=== PATIENT | male | born 1965 | race Caucasian/White ===

== ENCOUNTER 2016-03-03 20:51 | Emergency (ER) | payer BC ==
[~2016-03-03 20:51] MED LIST: Iopamidol 370 76% 100 ML VIAL ONE
[2016-03-03] MEDS ORDERED: Ketorolac Tromethamine 30 MG/ML VIAL ONE (21:34)
[2016-03-03 21:37] LABS: #Basophils 0.1 thou/uL (0.0-0.2); #Eosinphils 0.3 thou/uL (0.0-0.7); #Lymphocytes 2.9 thou/uL (1.20-3.40); #Monocytes 0.9 thou/uL (0.11-0.59); #Neutrophils 11.9 thou/uL (1.40-6.50); %Basophils 0.7 % (0.0-1.0); %Eosinophils 1.9 % (0.0-10.0); %Monocytes 5.8 % (0.0-10.0); Hematocrit 46.2 % (42.0-52.0); Mean Platelet Volume 7.3 fL (7.4-10.4); Red Blood Cell (RBC) Count 5.03 mill/uL (4.70-6.10); White Blood Cell (WBC) Count 16.1 thou/uL (4.8-10.8)
[2016-03-03 21:44] LABS: Lactic Acid - Sepsis 1.4 mmol/L (0.5-2.2)
[2016-03-03 21:46] LABS: ALT (SGPT) 30 U/L (0-55); AST (SGOT) 17 U/L (5-34); Alkaline Phosphatase 66 U/L (40-150); Anion Gap 15 mmol/L (10-20); BUN (Urea Nitrogen) 13 mg/dL (8.4-25.7); Bilirubin, Total 0.2 mg/dL (0.2-1.2); Calc. Creatinine Clearance 0 mL/min (70-130); Calcium 9.2 mg/dL (7.8-10.44); Carbon Dioxide 24 mmol/L (22-29); Chloride 111 mmol/L (98-107); Estimated GFR-MDRD Greater than 90; Globulin 3.1 g/dL (2.4-3.5); Lipase 16 U/L (8-78); Protein, Total 7.4 g/dL (6.0-8.3)
[2016-03-03] MEDS ORDERED: Piperacillin/Tazobactam 3.375 GM VIAL ONE (22:39)
--- NOTE | 2016-03-03 23:41 | ERRECORD ---
[facility] EMERGENCY RECORD HPI ABDOMINAL PAIN (21:10 [facility]) CHIEF COMPLAINT: Patient presents for evaluation of abdominal pain, Patient presents for evaluation of abdominal distention. HISTORIAN: History provided by patient, History provided by patient's partner, 50M presents to the ED complaining of two hours of periumbilical abdominal pain. States that he was having a problem with diarrhea and an outside provider started him on what he thinks is an anti-diarrheal medication. He stopped having diarrhea, and has had difficulty making a bowel movement since Friday. Has not had any nausea or vomiting. Has been passing gas, but not today, and has had only small amounts of fluid passed rectally. LOCATION MALE: Symptoms are generalized. QUALITY: Pain is dull in nature. TIME COURSE: Sudden onset of symptoms, Symptoms are constant. ASSOCIATED WITH: Associated with constipation, Associated with diarrhea. RELIEVED BY: Patient's condition relieved by nothing. EXACERBATED BY: Patient's condition exacerbated by nothing. ROS (21:12 [facility]) CONSTITUTIONAL: Negative constitutional review of systems, Historian denies chills, denies fever. EYES: Negative eye review of systems, Historian denies eye pain, denies eye discharge, denies vision changes. ENT: Negative ears, nose, throat review of systems, Historian denies rhinorrhea, denies sore throat. CARDIOVASCULAR: Negative cardiovascular review of systems, Historian denies chest pain, denies palpitations. RESPIRATORY: Negative respiratory review of systems, Historian denies cough, denies shortness of breath. GI: Historian reports abdominal pain, reports constipation, reports diarrhea. GENITOURINARY MALE: Negative genitourinary review of systems, Historian denies dysuria, denies hematuria. MUSCULOSKELETAL: Negative musculoskeletal review of systems, Historian denies back pain, denies fall, denies injury, denies neck pain. SKIN: Negative skin review of systems, Historian denies rash, denies skin changes. NEUROLOGIC: Negative neurologic review of systems, Historian denies headache. HEMO/LYMPHATIC: Normal hematologic/lymphatic system review, Historian denies abnormal blood clotting. PAST MEDICAL HISTORY (21:05 [facility]) MEDICAL HISTORY: No past medical history. 03/03/16 RECENTLY DX WITH HYPERTENSION AND STARTED ON MEDS. H/O GERDS AND IS ON AMOXICILLIN FOR A POSSIBLE TOOTH INFECTION. MALE SURGICAL HISTORY: Surgical history of hernia repair. &a-1R&a+25V*p+0X*[id number]*c202B*c15G*c2P*p-0X&a-25V&a+1R Name: Rodriguez Nolasco : 1965 M50 MedRec: [id number] AcctNum: [id number] Prepared: FriMar 04, 2016 00:13 by Interface Page 1 of 4 pMD [facility] EMERGENCY RECORD REVIEWED 03/03/16. PSYCHIATRIC HISTORY: Psychiatric history includes, depression. REVIEWED 03/03/16. SOCIAL HISTORY: Patient drinks socially, every week, Patient denies drug use, Patient currently uses tobacco, smokes cigarettes, daily, Patient smokes 1 pack per day. 03/03/16 PER PATIENT, DENIES ANY SMOKING. QUIT 3 MONTHS WOKING. KNOWN ALLERGIES No Known Drug Allergies CURRENT MEDICATIONS No recorded medications VITAL SIGNS VITAL SIGNS: BP: 196/90, Pulse: 84, Resp: 20, Temp: 97.9 (Oral), Pain: 10, O2 sat: 97 on Room Air, Time: 03/03/2016 21:13. (21:13 [facility]) BP: 158/76, Pulse: 88, Resp: 20, Temp: 98.0 (Oral), Pain: 8, O2 sat: 98 on Room Air, Time: 03/03/2016 22:30. (22:30 [facility]) PHYSICAL EXAM (21:12 [facility]) CONSTITUTIONAL: Vital signs reviewed, Patient afebrile, Pulse normal, Blood pressure normal, Respiratory rate normal, Patient appears non toxic, Patient appears pain free, Patient alert and oriented to person, place and time. HEAD: Head exam normal, Head exam included findings of head atraumatic, normocephalic. EYES: Eye exam normal, Eye exam included findings of eyelids normal to inspection, Pupils equally round and reactive to light, Extraocular muscles intact, no nystagmus. ENT: ENT exam normal, Ear exam normal, external ear normal, tympanic membranes normal, no bleeding, Pharynx exam normal, Uvula exam normal, Tonsil exam normal, Mouth exam normal, mucous membranes moist, teeth normal. NECK: Neck exam normal, Neck exam included findings of normal range of motion, Trachea midline, no meningeal signs, no cervical adenopathy, no tenderness. RESPIRATORY CHEST: Respiratory and chest exam normal, Respiratory exam included findings of no respiratory distress, Breath sounds clear. CARDIOVASCULAR: Cardiovascular assessment normal, Cardiovascular exam included findings of heart rate regular rate and rhythm, Heart sounds normal. ABDOMEN MALE: Distension present, distended belly, patient reports generalized tenderness. BACK: Back exam normal, Back exam included findings of normal inspection, range of motion normal, no tenderness. UPPER EXTREMITY: Upper extremity exam normal, Upper extremity exam included findings of inspection normal, Range of motion normal, Motor strength normal, Sensation intact, Radial pulse normal. &a-1R&a+25V*p+0X*[id number]*c202B*c15G*c2P*p-0X&a-25V&a+1R Name: Rodriguez Nolasco : 1965 M50 MedRec: [id number] AcctNum: [id number] Prepared: FriMar 04, 2016 00:13 by Interface Page 2 of 4 pMD [facility] EMERGENCY RECORD LOWER EXTREMITY: Lower extremity exam normal, Lower extremity exam included findings of inspection normal, Range of motion normal, Motor strength normal, Sensation intact, Posterior tibial pulse normal, Pedal pulse normal. NEURO: Neuro exam normal, Neuro exam findings include patient oriented to person, place and time, Speech normal, Gait normal. SKIN: Skin exam normal, Skin exam included findings of skin warm, dry, and normal in color, no rash. PSYCHIATRIC: Psychiatric exam normal, Normal affect. RADIOLOGYINTERPRETATION (22:46 [facility]) ABDOMEN: Abdomen/pelvis CT scan, appendicitis. MEDICATION ADMINISTRATION SUMMARY Drug Name: Zosyn, Dose Ordered: 3.375 g, Route: IV Piggy Back, Status: Given, Time: 22:43 03/03/2016, Drug Name: morphine injection, Dose Ordered: 4 mg, Route: IV Push, Status: Given, Time: 22:40 03/03/2016, Drug Name: Toradol injection, Dose Ordered: 30 mg, Route: IV Push, Status: Given, Time: 21:36 03/03/2016, Detailed record available in Medication Service section. DOCTOR NOTES (22:46 [facility]) RE-EVALUATION: Routine re-evaluation, after administration of analgesics, The patient's condition has improved. TEXT: Patient presented with findings consistent with acute appendicitis. hemodynamically stable with improving symptoms following analgesics. Antibiotics delivered, appropriate for transfer to outside hospital with surgical capabilities. PATIENT STATUS: Patient has improved since arrival to emergency department. PATIENT PLAN: The patient requires a transfer and will be transferred, per physician request, due to availability of specialty care. DATA REVIEWED: Lab data reviewed, Xray data reviewed. PROBLEM LIST No recorded problems DIAGNOSIS (22:43 [facility]) FINAL: PRIMARY: Acute appendicitis (unspecified), ADDITIONAL: laceration left hand. PRESCRIPTION No recorded prescriptions DISPOSITION PATIENT: Disposition Type: Discharge, Disposition: *Discharge Home. (22:42 [facility]) &a-1R&a+25V*p+0X*[id number]*c202B*c15G*c2P*p-0X&a-25V&a+1R Name: Rodriguez Nolasco : 1965 1 MedRec: [id number] AcctNum: [id number] Prepared: FriMar 04, 2016 00:13 by Interface Page 3 of 4 pMD [facility] EMERGENCY RECORD Disposition Type: Transfer, Disposition: [facility]. (22:43 [facility]) Disposition: Transfer to [facility]. (22:46 [facility]) Patient left the department. (FriMar 04, 2016 00:11 [facility]) Mir: TETO=MD Lorin, Yasmani [facility]=NICO Monroe Leah MVIL=CHERYL Vick, Chery &a-1R&a+25V*p+0X*[id number]*c202B*c15G*c2P*p-0X&a-25V&a+1R Name: Rodriguez Nolasco : 1965 M50 MedRec: [id number] AcctNum: [id number] Prepared: FriMar 04, 2016 00:13 by Interface Page 4 of 4 pMD [facility]
--- NOTE | 2016-03-03 23:48 | PICIS ---
[facility] EMERGENCY RECORD TRIAGE (FriMar 03, 2016 21:01 MVIL) TRIAGE NOTES: C/O DIARRHEA X 2-3 WKS WITH ABD PAIN. DENIES ANY N/V OR FEVER. (FriMar 03, 2016 21:01 MVIL) PATIENT: NAME: Rodriguez Nolasco, AGE: 50, GENDER: male, : Fri1965, TIME OF GREET: FriMar 03, 2016 20:52, PREFERRED LANGUAGE: [place], ETHNICITY: Not or , ECODE BILLING MAP: [facility], SSN: [id number], Zip Code: [address], KG WEIGHT: 120.20, HEIGHT/LENGTH: 177.80cm, BMI: 38.02, PHONE: , , , PERSON ID: [id number], PAYMENT: X IDverge, PCP: NONE. (FriMar 03, 2016 21:01 MVIL) COMPLAINT: CONSTIPATION. (FriMar 03, 2016 21:01 MVIL) ADMISSION: URGENCY: 4 Non Urgent, ADMISSION SOURCE: Home, TRANSPORT: CAR, BED: ER -02. (FriMar 03, 2016 21:01 MVIL) ASSESSMENT: Assessment: C/O GENERALIZED ABD PAIN WITH B/L FLANK PAIN AND LOWER PELVIC PAIN WELL. PATIENT HAS, Symptoms began 03/03/2016 21:04, Symptoms began 1 hour ago. (21:05 MVIL) PAIN: Patient complains of pain described as, cramping, on a scale 0-10 patient rates pain as 10, Location GENERALIZED ABD PAIN, Pain is constant, No aggravating factors, No relieving factors. (21:05 MVIL) IMMUNIZATIONS: Flu vaccine not up to date, Tetanus immunization up to date, Pneumococcal vaccine not up to date. (21:05 MVIL) PROVIDERS: TRIAGE NURSE: Chery Vick RN. (FriMar 03, 2016 21:01 MVIL) PREVIOUS VISIT ALLERGIES: No Known Drug Allergies. (FriMar 03, 2016 21:01 MVIL) No Known Drug Allergies. (21:05 MVIL) KNOWN ALLERGIES No Known Drug Allergies CURRENT MEDICATIONS No recorded medications VITAL SIGNS VITAL SIGNS: BP: 196/90, Pulse: 84, Resp: 20, Temp: 97.9 (Oral), Pain: 10, O2 sat: 97 on Room Air, Time: 03/03/2016 21:13. (21:13 LSMI) BP: 158/76, Pulse: 88, Resp: 20, Temp: 98.0 (Oral), Pain: 8, O2 sat: 98 on Room Air, Time: 03/03/2016 22:30. (22:30 LSMI) NURSING ASSESSMENT: ABDOMEN (21:53 MVIL) CONSTITUTIONAL: Patient arrives ambulatory, Gait steady, History obtained from patient, Patient appears comfortable, Patient cooperative, Patient alert, Oriented to person, place and time, Skin warm, Skin dry, Skin normal in color, Mucous membranes pink, Mucous membranes moist, Patient, with poor personal hygiene, Patient complains of C/O GENERALIZED ABD PAIN WITH 2-3 &a-1R&a+25V*p+0X*l6096U*c202B*c15G*c2P*p-0X&a-25V&a+1R Name: Rodriguez Nolasco Irlanda : 1965 M50 MedRec: [id number] AcctNum: [id number] Prepared: FriMar 04, 2016 00:19 by Interface Page 1 of 9 pMD [facility] EMERGENC[facility] RECORD DIARRHEA, PAIN LEVEL 9/10. TORADOL IV GIVEN PER MD ORDERS. PAIN: cramping pain, diffusely, constant, on a scale 0-10 patient rates pain as 9, Pain exacerbated by nothing, Nothing has been tried to alleviate the pain. ABDOMEN: Abdomen assessment findings include abdomen symmetrical, Abdomen soft, Resonance with percussion, Bowel sound normal, Associated with nausea. SAFETY: Side rails up, Cart/Stretcher in lowest position, Family at bedside, Call light within reach, Hospital ID band on. NURSING PROCEDURE: DISCHARGE NOTE (22:53 MVIL) DISCHARGE: Patient discharged to work. NURSING PROCEDURE: IV (21:26 MVIL) PATIENT IDENITIFIER: Patient actively involved in identification process, Patient's identity verified by patient stating name, Patient's identity verified by hospital ID bracelet. IV SITE 1: IV therapy indicated for medication administration, IV established, to the right antecubital, using a 20 gauge catheter, in two attempts, Saline lock established, Flushed with normal saline (mls): 10mls, Labs drawn at time of placement, labeled in the presence of the patient and sent to lab. FOLLOW-UP SITE 1: After procedure, 2x3 ensure dressing applied, After procedure, no drainage at IV site, After procedure, no swelling at IV site, After procedure, no redness at IV site. SAFETY: Side rails up, Cart/Stretcher in lowest position, Family at bedside, Call light within reach, Hospital ID band on. NURSING PROCEDURE: TRANSFER (23:07 MVIL) TRANSFER: Reason for transfer need for specialized care, Diagnosis: ACUTE APPENDICITIS, Accepting institution: [facility], Accepting physician: DR. NELSON, Referring physician: DR. GASCA, Report called to receiving facility, [facility], Provided opportunity to answer questions, Bed assigned ER, Summary of Care printed, Copy of patient record prepared for receiving facility, Status of patient's valuables documented on chart, Medication reconciliation form prepared and sent to receiving facility, Patient consent for transfer signed, Patient given appropriate sedation for safe transport. BELONGINGS: Belongings and valuables with patient at time of discharge include:. NURSING PROCEDURE: TRANSPORT TO TESTS PATIENT IDENTIFIER: Patient actively involved in identification process, Patient's identity verified by patient stating name, Patient's identity verified by hospital ID bracelet. (21:50 MVIL) TRANSPORT TO TESTS: Transport indicated to facilitate diagnosis, Patient transported to CT scan, ambulatory, Accompanied by x-ray &a-1R&a+25V*p+0X*v6632Q*c202B*c15G*c2P*p-0X&a-25V&a+1R Name: Rodriguez Nolasco : 1965 M50 MedRec: [id number] AcctNum: [id number] Prepared: FriMar 04, 2016 00:19 by Interface Page 2 of 9 pMD [facility] EMERGENCY RECORD instrument and control technician. (21:50 MVIL) FOLLOW-UP: After procedure, patient returned to emergency department. (22:00 MVIL) ORDER DETAILS Order Name: CBC with Differential, Status: Active, Time: 21:05 03/03/2016, User: TETO, - Ordered for: MD Gasca Jason, - Entered by: MD Gasca Jason - Sun Mar 03, 2016 21:05, - Quantity: 1, Order Name: Comprehensive Metabolic Panel, Status: Active, Time: 21:05 03/03/2016, User: TETO, - Ordered for: MD Gasca Jason, - Entered by: MD Gasca Jason - Sun Mar 03, 2016 21:05, - Quantity: 1, Order Name: CT Abdomen Pelvis W Con, Status: Active, Time: 21:05 03/03/2016, User: TETO, - Ordered for: MD Gasca Jason, - Entered by: MD Gasca Jason - Sun Mar 03, 2016 21:05, - Quantity: 1, Order Name: Lactic Acid with repeat, Status: Active, Time: 21:05 03/03/2016, User: TETO, - Ordered for: MD Gasca Jason, - Entered by: MD Gasca Jason - Sun Mar 03, 2016 21:05, - Quantity: 1, Order Name: Lipase, Status: Active, Time: 21:05 03/03/2016, User: TETO, - Ordered for: MD Gasca Jason, - Entered by: MD Gasca Jason - Sun Mar 03, 2016 21:05, - Quantity: 1, Order Name: SALINE LOCK, Status: Done, Time: 21:26 03/03/2016, User: BRUCE, - Ordered for: MD Gasca Jason, - Entered by: MD Gasca Jason Kalani Mar 03, 2016 21:05, - Quantity: 1. MEDICATION ADMINISTRATION SUMMARY Drug Name: Zosyn, Dose Ordered: 3.375 g, Route: IV Piggy Back, Status: Given, Time: 22:43 03/03/2016, Drug Name: morphine injection, Dose Ordered: 4 mg, Route: IV Push, Status: Given, Time: 22:40 03/03/2016, Drug Name: Toradol injection, Dose Ordered: 30 mg, Route: IV Push, Status: Given, Time: 21:36 03/03/2016, Detailed record available in Medication Service section. MEDICATION SERVICE morphine injection: Order: morphine injection (morphine sulfate) - Dose: 4 mg : IV Push &a-1R&a+25V*p+0X*p4946N*c202B*c15G*c2P*p-0X&a-25V&a+1R Name: Rodriguez Nolasco : 1965 M50 MedRec: [id number] AcctNum: [id number] Prepared: FriMar 04, 2016 00:19 by Interface Page 3 of 9 pMD [facility] EMERGENC[facility] RECORD Ordered by: Yasmani Gasca MD Entered by: MD Kalani Perera Mar 03, 2016 22:35 , Acknowledged by: NICO Luis Mar 03, 2016 22:39 Documented as given by: NICO Luis Mar 03, 2016 22:40 Patient, Medication, Dose, Route and Time verified prior to administration. IV SITE #1 IVP, initial medication, Slowly, Catheter placement confirmed via flush prior to administration, IV site without signs or symptoms of infiltration during medication administration, No swelling during administration, No drainage during administration, IV flushed after administration, Correct patient, time, route, dose and medication confirmed prior to administration, Patient advised of actions and side-effects prior to administration, Allergies confirmed and medications reviewed prior to administration, Patient in position of comfort, Side rails up, Cart in lowest position, Family at bedside, Call light in reach. : Follow Up : Response assessment performed, No signs or symptoms of allergic reaction noted, Decreased pain, Site inspection shows, No swelling at administration site, No drainage at administration site, No bleeding at site, No bruising noted at site, _IV SITE #1:_. (23:16 MVIL) Toradol injection: Order: Toradol injection (ketorolac tromethamine) - Dose: 30 mg : IV Push Ordered by: Yasmani Gasca MD Entered by: MD Kalani Perera Mar 03, 2016 21:33 Documented as given by: Chery Vick RN [place] Mar 03, 2016 21:36 Patient, Medication, Dose, Route and Time verified prior to administration. Amount given: 30mg, IV SITE #1 IVP, initial medication, Catheter placement confirmed via flush prior to administration, IV site without signs or symptoms of infiltration during medication administration, No swelling during administration, No drainage during administration, IV flushed after administration, Correct patient, time, route, dose and medication confirmed prior to administration, Patient advised of actions and side-effects prior to administration, Allergies confirmed and medications reviewed prior to administration, Patient in position of comfort, Side rails up, Cart in lowest position, Family at bedside. : Follow Up : Response assessment performed, No signs or symptoms of allergic reaction noted, Decreased pain, _IV SITE #1:_, IV Line flushed after administration, Advised not to ambulate without assistance, Patient in position of comfort, Side rails up, Cart in lowest position, Family at bedside. (23:23 MVIL) Zosyn: Order: Zosyn (piperacillin sodium/tazobactam sodium) - Dose: 3.375 g : IV Piggy Back Ordered by: Yasmani Gasca MD Entered by: MD Kalani Perera Mar 03, 2016 22:34 , Acknowledged by: NICO Luis Mar 03, 2016 22:39 Documented as given by: NICO Luis Mar 03, 2016 22:43 &a-1R&a+25V*p+0X*c1044E*c202B*c15G*c2P*p-0X&a-25V&a+1R Name: Rodriguez Nolasco Irlanda : 1965 M50 MedRec: [id number] AcctNum: [id number] Prepared: FriMar 04, 2016 00:19 by Interface Page 4 of 9 pMD [facility] EMERGENCY RECORD Patient, Medication, Dose, Route and Time verified prior to administration. IV SITE #1 IVP, subsequent different medication, Catheter placement confirmed via flush prior to administration, IV site without signs or symptoms of infiltration during medication administration, No swelling during administration, No drainage during administration, IV flushed after administration, Correct patient, time, route, dose and medication confirmed prior to administration, Patient advised of actions and side-effects prior to administration, Allergies confirmed and medications reviewed prior to administration, Patient in position of comfort, Side rails up, Cart in lowest position, Family at bedside, Call light in reach. : Follow Up : Response assessment performed, No signs or symptoms of allergic reaction noted, Decreased symptoms, _IV SITE #1:_, Medication infusion discontinued, on [place] Mar 03, 2016 23:25, 45 minutes, ., IV Line flushed after administration. (23:24 MVIL) HPI [facility]10 [facility] CHIEF COMPLAINT: Patient presents for evaluation of abdominal pain, Patient presents for evaluation of abdominal distention. HISTORIAN: History provided by patient, History provided by patient's partner, 50M presents to the ED complaining of two hours of periumbilical abdominal pain. States that he was having a problem with diarrhea and an outside provider started him on what he thinks is an anti-diarrheal medication. He stopped having diarrhea, and has had difficulty making a bowel movement since Friday. Has not had any nausea or vomiting. Has been passing gas, but not today, and has had only small amounts of fluid passed rectally. LOCATION MALE: Symptoms are generalized. QUALITY: Pain is dull in nature. TIME COURSE: Sudden onset of symptoms, Symptoms are constant. ASSOCIATED WITH: Associated with constipation, Associated with diarrhea. RELIEVED BY: Patient's condition relieved by nothing. EXACERBATED BY: Patient's condition exacerbated by nothing. ROS (21:12 [facility]) CONSTITUTIONAL: Negative constitutional review of systems, Historian denies chills, denies fever. EYES: Negative eye review of systems, Historian denies eye pain, denies eye discharge, denies vision changes. ENT: Negative ears, nose, throat review of systems, Historian denies rhinorrhea, denies sore throat. CARDIOVASCULAR: Negative cardiovascular review of systems, Historian denies chest pain, denies palpitations. RESPIRATORY: Negative respiratory review of systems, Historian denies cough, denies shortness of breath. GI: Historian reports abdominal pain, reports &a-1R&a+25V*p+0X*u3769I*c202B*c15G*c2P*p-0X&a-25V&a+1R Name: Rodriguez Nolasco Irlanda : 1965 M50 MedRec: [id number] AcctNum: [id number] Prepared: FriMar 04, 2016 00:19 by Interface Page 5 of 9 pMD [facility] EMERGENCY RECORD constipation, reports diarrhea. GENITOURINARY MALE: Negative genitourinary review of systems, Historian denies dysuria, denies hematuria. MUSCULOSKELETAL: Negative musculoskeletal review of systems, Historian denies back pain, denies fall, denies injury, denies neck pain. SKIN: Negative skin review of systems, Historian denies rash, denies skin changes. NEUROLOGIC: Negative neurologic review of systems, Historian denies headache. HEMO/LYMPHATIC: Normal hematologic/lymphatic system review, Historian denies abnormal blood clotting. PAST MEDICAL HISTORY (21:05 [place]) MEDICAL HISTORY: No past medical history. 03/03/16 RECENTLY DX WITH HYPERTENSION AND STARTED ON MEDS. H/O GERDS AND IS ON AMOXICILLIN FOR A POSSIBLE TOOTH INFECTION. MALE SURGICAL HISTORY: Surgical history of hernia repair. REVIEWED 03/03/16. PSYCHIATRIC HISTORY: Psychiatric history includes, depression. REVIEWED 03/03/16. SOCIAL HISTORY: Patient drinks socially, every week, Patient denies drug use, Patient currently uses tobacco, smokes cigarettes, daily, Patient smokes 1 pack per day. 03/03/16 PER PATIENT, DENIES ANY SMOKING. QUIT 3 MONTHS WOKING. PHYSICAL EXAM (21:12 [facility]) CONSTITUTIONAL: Vital signs reviewed, Patient afebrile, Pulse normal, Blood pressure normal, Respiratory rate normal, Patient appears non toxic, Patient appears pain free, Patient alert and oriented to person, place and time. HEAD: Head exam normal, Head exam included findings of head atraumatic, normocephalic. EYES: Eye exam normal, Eye exam included findings of eyelids normal to inspection, Pupils equally round and reactive to light, Extraocular muscles intact, no nystagmus. ENT: ENT exam normal, Ear exam normal, external ear normal, tympanic membranes normal, no bleeding, Pharynx exam normal, Uvula exam normal, Tonsil exam normal, Mouth exam normal, mucous membranes moist, teeth normal. NECK: Neck exam normal, Neck exam included findings of normal range of motion, Trachea midline, no meningeal signs, no cervical adenopathy, no tenderness. RESPIRATORY CHEST: Respiratory and chest exam normal, Respiratory exam included findings of no respiratory distress, Breath sounds clear. CARDIOVASCULAR: Cardiovascular assessment normal, Cardiovascular exam included findings of heart rate regular rate and rhythm, Heart sounds normal. ABDOMEN MALE: Distension present, distended belly, &a-1R&a+25V*p+0X*x3693S*c202B*c15G*c2P*p-0X&a-25V&a+1R Name: Shinto Rodriguez E : 1965 M50 MedRec: [id number] AcctNum: [id number] Prepared: FriMar 04, 2016 00:19 by Interface Page 6 of 9 pMD [facility] EMERGENCY RECORD patient reports generalized tenderness. BACK: Back exam normal, Back exam included findings of normal inspection, range of motion normal, no tenderness. UPPER EXTREMITY: Upper extremity exam normal, Upper extremity exam included findings of inspection normal, Range of motion normal, Motor strength normal, Sensation intact, Radial pulse normal. LOWER EXTREMITY: Lower extremity exam normal, Lower extremity exam included findings of inspection normal, Range of motion normal, Motor strength normal, Sensation intact, Posterior tibial pulse normal, Pedal pulse normal. NEURO: Neuro exam normal, Neuro exam findings include patient oriented to person, place and time, Speech normal, Gait normal. SKIN: Skin exam normal, Skin exam included findings of skin warm, dry, and normal in color, no rash. PSYCHIATRIC: Psychiatric exam normal, Normal affect. LAB INTERPRETATION (22:46 [facility]) INTERPRETATION: CBC abnormal, White blood cell count elevated, Chemistry normal. EVENTS TRANSFER: Triage to Emergency Emergency Room -02. (FriMar 03, 2016 21:01 MVIL) Removed from Emergency Emergency Room -02. (FriMar 04, 2016 00:11 LSMI) RADIOLOGYINTERPRETATION (22:46 [facility]) ABDOMEN: Abdomen/pelvis CT scan, appendicitis. DOCTOR NOTES (22:46 [facility]) RE-EVALUATION: Routine re-evaluation, after administration of analgesics, The patient's condition has improved. TEXT: Patient presented with findings consistent with acute appendicitis. hemodynamically stable with improving symptoms following analgesics. Antibiotics delivered, appropriate for transfer to outside hospital with surgical capabilities. PATIENT STATUS: Patient has improved since arrival to emergency department. PATIENT PLAN: The patient requires a transfer and will be transferred, per physician request, due to availability of specialty care. DATA REVIEWED: Lab data reviewed, Xray data reviewed. PROBLEM LIST No recorded problems DIAGNOSIS (22:43 [facility]) FINAL: PRIMARY: Acute appendicitis (unspecified), ADDITIONAL: laceration left hand. DISPOSITION &a-1R&a+25V*p+0X*q5206H*c202B*c15G*c2P*p-0X&a-25V&a+1R Name: Shinto , Rodriguez E : 1965 M50 MedRec: [id number] AcctNum: [id number] Prepared: FriMar 04, 2016 00:19 by Interface Page 7 of 9 pMD [facility] EMERGENCY RECORD PATIENT: Disposition Type: Discharge, Disposition: *Discharge Home. (22:42 JJA) Disposition Type: Transfer, Disposition: [facility]. [facility]43 [facility] Disposition: Transfer to [facility]. (22:46 JJA) Patient left the department. (FriMar 04, 2016 00:11 LSMI) INSTRUCTION (22:43 JA) DISCHARGE: HAND LACERATION. SPECIAL: Watch for worsening pain, redness, or discharge. If you develop any, return to the ED. See your PMD in 7-10 days for wound check/suture removal. PRESCRIPTION No recorded prescriptions IMAGING *MEMORANDUM OF TRANSFER: Image captured from scanner. (22:46 MVIL) PHYSICIAN CERTIFICATION STATEMENT: Image captured from scanner. (22:47 MVIL) CONSENTS: Image captured from scanner. (22:47 MVIL) CT REPORT: Image captured from scanner. (22:53 MVIL) Image captured from scanner. (22:53 MVIL) Image captured from scanner. (22:53 MVIL) Image captured from scanner. (22:54 MVIL) *SUPPLY CHARGE SHEET: Image captured from scanner. (22:55 MVIL) ADMIN (22:47 [facility]) DIGITAL SIGNATURE: MD Gasca Jason. RESULTS (22:49 MVIL) LABORATORY: Lipase Collection DT: Kalani Mar 03, 2016 21:34, Lipase 16 U/L, Range (8-78). Comprehensive Metabolic Panel Collection DT: [place] Mar 03, 2016 21:34, *Sodium 146 - H mmol/L, Range (136-145), Potassium 3.5 mmol/L, Range (3.5-5.1), *Chloride 111 - H mmol/L, Range (98-107), Carbon Dioxide 24 mmol/L, Range (22-29), Anion Gap 15 mmol/L, Range (10-20), BUN (Urea Nitrogen) 13 mg/dL, Range (8.4-25.7), Creatinine 0.75 mg/dL, Range (0.7-1.3), Estimated GFR-MDRD Greater than 90 , Reference Range for Estimated GFR: Greater than 90, mL/min/1.73 m2 NOTE: The MDRD equation has not been validated for use, with the elderly (over 70 years of age), women, patients &a-1R&a+25V*p+0X*k3020W*c202B*c15G*c2P*p-0X&a-25V&a+1R Name: Rodriguez Nolasco : 1965 M50 MedRec: [id number] AcctNum: [id number] Prepared: FriMar 04, 2016 00:19 by Interface Page 8 of 9 pMD [facility] EMERGENC[facility] RECORD with, serious comorbid condition or persons with extremes of body size, muscle, mass, or nutritional status. , *Glucose 106 - H mg/dL, Range (70-105), Calcium 9.2 mg/dL, Range (7.8-10.44), Bilirubin, Total 0.2 mg/dL, Range (0.2-1.2), Protein, Total 7.4 g/dL, Range (6.0-8.3), NOTE: Plasma values are generally 0.3 to 0.5 g/dL higher than serum values, due to the presence of fibrinogen. , Albumin 4.3 g/dL, Range (3.5-5.0), Globulin 3.1 g/dL, Range (2.4-3.5), Alb/Glob Ratio 1.4 g/dL, Range (1.2-2.2), Alkaline Phosphatase 66 U/L, Range (40-150), AST (SGOT) 17 U/L, Range (5-34), ALT (SGPT) 30 U/L, Range (0-55). Lactic Acid for Sepsis Collection DT: [place] Mar 03, 2016 21:34, Lactic Acid - Sepsis 1.4 mmol/L, Range (0.5-2.2). CBC with Differential Collection DT: [place] Mar 03, 2016 21:34, *White Blood Cell (WBC) Count 16.1 - H thou/uL, Range (4.8-10.8), Red Blood Cell (RBC) Count 5.03 mill/uL, Range (4.70-6.10), Hemoglobin 15.4 g/dL, Range (14.0-18.0), Hematocrit 46.2 %, Range (42.0-52.0), Mean Corpuscular Volume 91.8 fl, Range (80.0-94.0), Mean Corpuscular Hemoglobin 30.6 pg, Range (27.0-31.0), Mean Corpuscular HGB CONC 33.3 g/dL, Range (32.0-36.0), RBC Distribution Width 12.1 %, Range (11.5-14.5), Platelet Count 204 thou/uL, Range (130-400), *Mean Platelet Volume 7.3 - L fL, Range (7.4-10.4), %Neutrophils 73.7 %, Range (42.0-75.0), *%Lymphocytes 18.0 - L %, Range (21.0-51.0), %Monocytes 5.8 %, Range (0.0-10.0), %Eosinophils 1.9 %, Range (0.0-10.0), %Basophils 0.7 %, Range (0.0-1.0), *#Neutrophils 11.9 - H thou/uL, Range (1.40-6.50), #Lymphocytes 2.9 thou/uL, Range (1.20-3.40), *#Monocytes 0.9 - H thou/uL, Range (0.11-0.59), #Eosinphils 0.3 thou/uL, Range (0.0-0.7), #Basophils 0.1 thou/uL, Range (0.0-0.2). Mir: TETO=MD Lorin, Yasmani FRAZIERI=NICO Monroe Leah MVIL=CHERYL Vick, Chery &a-1R&a+25V*p+0X*t4377G*c202B*c15G*c2P*p-0X&a-25V&a+1R Name: Rodriguez Nolasco : 1965 M50 MedRec: [id number] AcctNum: [id number] Prepared: FriMar 04, 2016 00:19 by Interface Page 9 of 9 pMD [facility]
--- NOTE | 2016-03-04 09:41 | CT ---
PRELIMINARY REPORT/[facility]/EMERGENCY AFTER HOURS PROCEDURE: Addendum created by Soham Winslow MD on 03/03/2016 10:27 PM Central Time ([place]) CRITICAL RESULT: The study was discussed on the telephone with [KRISTOFER Nguyen] on 03/03/2016 10:2 6 PM [employer]IST. The results were understood and acknowledged. Initial Report created on 03/03/2016 10:24 PM Central Time ([place] \T\ [place]) EXAM: CT Abdomen and Pelvis With Intravenous Contrast. CLINICAL HISTORY: 50 years old, male; Pain; Abdominal pain; Generalized; Prior surgery; Surgery date: 6+ months; Surge ry type: Hernia repair in the past. ; Patient HX: Pt to er with abdominal pain and diarrhea x 2-3 we eks. ; TECHNIQUE: Axial computed tomography images of the abdomen and pelvis with intravenous contrast. Coronal reformatted images were created and reviewed. CONTRAST: 95 mL of isovue 370 administered intravenously. COMPARISON: No relevant prior studies available. FINDINGS: Lower thorax: No acute findings. ABDOMEN: Liver: Unremarkable. No mass. Gallbladder and bile ducts: Unremarkable. No calcified stones. No ductal dilation. Pancreas: Unremarkable. No mass. No ductal dilation. Spleen: Unremarkable. No splenomegaly. Adrenals: Unremarkable. No mass. Kidneys and ureters: Unremarkable. No solid mass. No hydronephrosis. Stomach and bowel: Unremarkable. No obstruction. No mucosal thickening. Appendix: The appendix appears minimally thickened and there is minimal periappendiceal fat strandin g. This is most consistent with acute appendicitis. There is no evidence of perforation or abscess f ormation. PELVIS: Bladder: Unremarkable. No mass. Reproductive: Unremarkable as visualized. ABDOMEN and PELVIS: Intraperitoneal space: Unremarkable. No free air. No significant fluid collection. Bones/joints: No acute fracture. No dislocation. Soft tissues: Postoperative changes from prior RIGHT inguinal hernia repair Vasculature: Unremarkable. No abdominal aortic aneurysm. Lymph nodes: Unremarkable. No enlarged lymph nodes. IMPRESSION: Findings consistent with acute appendicitis without evidence of perforation or periappendiceal absce ss. Thank you for allowing us to participate in the care of your patient. Dictated and Authenticated by: Soham Winslow MD 03/03/2016 10:24 PM Central Time ([place] \T\ [place]) FINAL REPORT CT ABDOMEN AND PELVIS WITH CONTRAST: DATE: 03/03/16. FINDINGS: Spiral CT of the abdomen and pelvis was performed for evaluation of abdominal pain and diarrhea. Ax ial slices were acquired after giving IV contrast. Oral contrast was withheld by request. The lung bases are clear. The liver is a little generous in size but otherwise appears normal. The spleen, pancreas, adrenal glands, gallbladder, and abdominal aorta all appear normal. Bilateral nonobstructing calculi are seen in the kidneys. There is a 2.6 cm lucency in the left kid pipe which is probably a cyst. Ultrasound would be needed for complete confirmation. The appendix is thickened measuring nearly 1 cm in spots with a very small amount of periappendiceal stranding. This could signify acute appendicitis; however, I would note that the entire colon appe ars to have some degree of mucosal thickening such as might be seen in colitis. There is no pericol onic stranding. No free air or free fluid was seen. No abscess is noted. CT of the pelvis shows prior right inguinal hernia repair. No pelvic masses, inflammatory changes, or adenopathy was seen. IMPRESSION: 1. Thickening and some stranding around the appendix generally compatible with acute appendicitis. I would make the proviso, however, that the entire colon seems to have some generalized wall thicke tomasa in general. This raises the question of a mild diffuse colitis either in addition to the appen diceal findings, or even perhaps as the cause of it. Surgical consult and examination is warranted for next steps. 2. Bilateral nonobstructing renal calculi. Report is in partial agreement with preliminary reading by [email or web address]. Renal calculi not mentioned. Sli ght prominence of colonic mucosa not mentioned. POS: HOME
== END 2016-03-04 00:11 | disposition short-term general hospital (02) ==
LOC: BURERS 20:51
DX: K35.80 Unspecified acute appendicitis (principal); S61.412A Laceration without foreign body of left hand, initial encounter; K21.9 Gastro-esophageal reflux disease without esophagitis; F32.9 Major depressive disorder, single episode, unspecified; F17.210 Nicotine dependence, cigarettes, uncomplicated; X58.XXXA Exposure to other specified factors, initial encounter
CPT/HCPCS: 74177; 80053; 83605; 83690; 85025; 96365; 96375; J1885; J2270; J2543

== ENCOUNTER 2020-11-30 14:31 | Emergency (ER) | payer BC, SELFPAY ==
[2020-11-30] MEDS ORDERED: Lidocaine 1% PF 5 ML VIAL ONE (15:07)
[2020-11-30] MEDS ORDERED: Cephalexin 250 MG CAP ONE (15:25)
== END 2020-11-30 15:26 | disposition home or self-care (01) ==
LOC: BURERS 14:31
DX: L02.412 Cutaneous abscess of left axilla (principal); I10 Essential (primary) hypertension; F17.210 Nicotine dependence, cigarettes, uncomplicated; Z20.822 Contact with and (suspected) exposure to COVID-19
CPT/HCPCS: 10060

== ENCOUNTER 2020-12-02 09:57 | Emergency (ER) | payer SELFPAY | END 2020-12-02 10:15 | disposition home or self-care (01) | LOC: BURERS 09:57 | DX: Z48.817 Encounter for surgical aftercare following surgery on the skin and subcutaneous tissue (principal); I10 Essential (primary) hypertension; F17.210 Nicotine dependence, cigarettes, uncomplicated; Z79.899 Other long term (current) drug therapy | CPT/HCPCS: 99282 ==

== ENCOUNTER 2021-02-04 04:58 | Emergency (ER) | payer SELFPAY ==
[2021-02-04] MEDS ORDERED: Dicyclomine 20 MG TAB ONE (05:43)
[2021-02-04] MEDS ORDERED: Ketorolac Tromethamine 60 MG/2 ML VIAL ONE (05:43)
[2021-02-04 05:45] LABS: Bilirubin Negative (Negative); Blood, Urine Large (Negative); Clarity Slightly Cloudy (Clear); Glucose, Urine (Dipstick) Negative (Negative); Ketone, Urine Trace mg/dL (Negative); Leukocyte Negative (Negative); Nitrite Negative (Negative); Protein, Urine (Dipstick) Negative (Neg-Trace); Specific Gravity, Urine 1.025 (1.005-1.030); Urobilinogen 0.2 mg/dL (Less than 2)
[2021-02-04 06:03] LABS: Squamous Epithelial 0-3 HPF (0-3); WBC/HPF None Seen HPF (0-3)
[2021-02-04 07:07] LABS: #Basophils 0.1 thou/uL (0.0-0.2); #Eosinphils 0.1 thou/uL (0.0-0.7); #Lymphocytes 1.5 thou/uL (1.20-3.40); #Monocytes 0.8 thou/uL (0.11-0.59); #Neutrophils 13.4 thou/uL (1.40-6.50); %Basophils 0.8 % (0.0-1.0); %Eosinophils 0.7 % (0.0-10.0); %Lymphocytes 9.3 % (21.0-51.0); %Monocytes 5.1 % (0.0-10.0); %Neutrophils 84.1 % (42.0-75.0); Hemoglobin 15.5 g/dL (14.0-18.0); Mean Corpuscular HGB CONC 33.8 g/dL (32.0-36.0); Mean Corpuscular Hemoglobin 31.1 pg (27.0-31.0); Mean Corpuscular Volume 92.2 fL (78.0-98.0); Mean Platelet Volume 8.5 fL (7.4-10.4); Platelet Count 235 thou/uL (130-400); RBC Distribution Width 13.1 % (11.5-14.5); Red Blood Cell (RBC) Count 4.97 mill/uL (4.70-6.10); White Blood Cell (WBC) Count 15.9 thou/uL (4.8-10.8)
[2021-02-04 07:08] LABS: ALT (SGPT) 44 U/L (8-55); AST (SGOT) 23 U/L (5-34); Albumin 4.4 g/dL (3.5-5.0); Alkaline Phosphatase 52 U/L (40-110); Anion Gap 16 mmol/L (10-20); BUN (Urea Nitrogen) 18 mg/dL (8.4-25.7); Bilirubin, Total 0.4 mg/dL (0.2-1.2); Calc. Creatinine Clearance 0 mL/min (70-130); Calcium 9.8 mg/dL (7.8-10.44); Carbon Dioxide 26 mmol/L (22-29); Chloride 105 mmol/L (98-107); Globulin 3.1 g/dL (2.4-3.5); Glucose 144 mg/dL (70-105); Potassium 4.6 mmol/L (3.5-5.1); Protein, Total 7.5 g/dL (6.0-8.3); Sodium 142 mmol/L (136-145)
== END 2021-02-04 07:23 | disposition home or self-care (01) ==
LOC: BURERS 04:58
DX: N13.2 Hydronephrosis with renal and ureteral calculous obstruction (principal); I10 Essential (primary) hypertension; E11.9 Type 2 diabetes mellitus without complications; F17.210 Nicotine dependence, cigarettes, uncomplicated; Z79.899 Other long term (current) drug therapy; Z79.84 Long term (current) use of oral hypoglycemic drugs
CPT/HCPCS: 36415; 74176; 80053; 81003; 81015; 85025; 96372; J1885